=== PATIENT | male | born 1975 | race Caucasian/White ===

== ENCOUNTER 2018-12-21 22:12 | Emergency (ER) | payer OTHER ==
[~2018-12-21] VITALS: Ht 185.4 cm; Wt 144.2 kg
[~2018-12-21 22:12] MED LIST: KEFLEX500 MG PO; LIDEX0.05% T; MOTRIN800 MG PO; PREDNICOT20 MG PO
[2018-12-21 23:21] LABS: BASO % 0.1 % (0.0-1.0); EOS # 0.2 10*3/uL (0.0-0.4); EOS % 1.6 % (1.0-4.0); HEMATOCRIT 42.3 % (42.0-52.0); LYMPH # 1.9 10*3/uL (1.3-4.4); LYMPH % 20.9 % (27.0-41.0); MEAN CELL VOLUME 89.4 fl (80.0-94.0); MEAN CORPUSCULAR HGB 29.6 pg (27.0-31.0); MEAN CORPUSCULAR HGB CONC 33.1 g/dl (33.0-37.0); MEAN PLATELET VOLUME 9.5 fl (9.6-12.3); MONO # 0.7 10*3/uL (0.1-1.0); MONO % 7.3 % (3.0-9.0); NEUT # 6.4 10*3/uL (2.3-7.9); NEUT % 69.9 % (47.0-73.0); PLATELET COUNT AUTOMATED 243 10*3/uL (130-400); RED BLOOD COUNT 4.73 10*6/uL (4.50-5.90); RED CELL DISTRI WIDTH 12.3 % (0-14.5); WHITE BLOOD COUNT 9.1 10*3/uL (4.8-10.8)
[2018-12-21 23:31] LABS: ACT PARTIAL THROMBO TIME 25.5 SECONDS (20.0-32.1)
[2018-12-21 23:37] LABS: ALBUMIN 3.8 gm/dl (3.1-4.5); ALKALINE PHOSPHATASE 118 U/L (45-117); BUN 9 mg/dl (7-24); CHLORIDE 105 mmol/L (98-107); CREATININE 0.96 mg/dL (0.70-1.30); POTASSIUM 3.3 mmol/L (3.5-5.1); SGOT/AST 20 IU/L (3-35); SGPT/ALT 52 U/L (12-78); SODIUM 137 mmol/L (136-145); TOTAL PROTEIN 7.5 gm/dL (6.4-8.2)
[2018-12-21] MEDS ORDERED: CEPHALEXIN500 M1 PO (23:57)
[2018-12-21] MEDS ORDERED: SEPTDS PO (23:57)
== END 2018-12-22 00:19 | disposition home or self-care (01) ==
LOC: ED 22:12
PROVIDERS: Nurse Practitioner Family
DX: S30.860A Insect bite (nonvenomous) of lower back and pelvis, initial encounter (principal); L08.9 Local infection of the skin and subcutaneous tissue, unspecified; Z91.040 Latex allergy status; W57.XXXA Bitten or stung by nonvenomous insect and other nonvenomous arthropods, initial encounter; Y93.89 Activity, other specified; Y92.89 Other specified places as the place of occurrence of the external cause; Y99.8 Other external cause status

== ENCOUNTER 2019-11-04 03:26 | Emergency (ER) | payer SELFPAY ==
[~2019-11-04] VITALS: Ht 185.4 cm; Wt 144.2 kg
[~2019-11-04 03:26] MED LIST changes: +CEPHALEXIN500 M1 PO; +SEPTDS PO
[2019-11-04] MEDS ORDERED: IBU800 MG PO (04:38)
[2019-11-04] MEDS ORDERED: KEFLEX500 M1 PO (04:38)
== END 2019-11-04 05:09 | disposition home or self-care (01) ==
LOC: ED 03:26
DX: S90.31XA Contusion of right foot, initial encounter (principal); X58.XXXA Exposure to other specified factors, initial encounter; Y93.02 Activity, running; Y92.89 Other specified places as the place of occurrence of the external cause; Y99.8 Other external cause status

== ENCOUNTER 2020-11-24 12:31 | Emergency (ER) | payer SELFPAY ==
[~2020-11-24 12:31] MED LIST changes: +IBU800 MG PO; +KEFLEX500 M1 PO
[2020-11-24 13:21] LABS: BASO % 0.1 % (0.0-1.0); EOS # 0.1 10*3/uL (0.0-0.4); EOS % 0.9 % (1.0-4.0); HEMATOCRIT 42.7 % (42.0-52.0); LYMPH # 1.5 10*3/uL (1.3-4.4); LYMPH % 16.2 % (27.0-41.0); MEAN CELL VOLUME 86.4 fl (80.0-94.0); MEAN CORPUSCULAR HGB 28.9 pg (27.0-31.0); MEAN CORPUSCULAR HGB CONC 33.5 g/dl (33.0-37.0); MEAN PLATELET VOLUME 9.3 fl (9.6-12.3); MONO # 0.6 10*3/uL (0.1-1.0); NEUT % 76.5 % (47.0-73.0); PLATELET COUNT AUTOMATED 285 10*3/uL (130-400); RED BLOOD COUNT 4.94 10*6/uL (4.50-5.90); RED CELL DISTRI WIDTH 12.4 % (0-14.5); WHITE BLOOD COUNT 9.1 10*3/uL (4.8-10.8)
[2020-11-24 13:33] LABS: ALBUMIN 4.4 gm/dl (3.1-4.5); ALKALINE PHOSPHATASE 127 U/L (45-117); BUN 12 mg/dl (7-24); CHLORIDE 106 mmol/L (98-107); CREATININE 1.14 mg/dL (0.70-1.30); LIPASE 68 U/L (73-393); POTASSIUM 3.6 mmol/L (3.5-5.1); SGOT/AST 29 IU/L (3-35); SGPT/ALT 53 U/L (12-78); SODIUM 138 mmol/L (136-145); TOTAL PROTEIN 8.4 gm/dL (6.4-8.2)
[2020-11-24 13:35] LABS: ACETAMINOPHEN (TYLENOL) < 5.0 ug/ml (10-30); ETHYL ALCOHOL < 3.0 mg/dl (<3); TROPONIN I < 0.015 ng/ml (<0.045)
[2020-11-24 15:35] LABS: BILIRUBIN Negative (Negative); BLOOD Negative (Negative); CLARITY Turbid (Clear); COLOR Dark Yellow (Yellow); GLUCOSE Negative (Negative); KETONE 1+ (Negative); LEUKO ESTERASE Trace (Negative); NITRITE Negative (Negative); SPECIFIC GRAVITY 1.025 (1.001-1.030)
[2020-11-24 15:41] LABS: PH 8.5 (4.5-8.0)
[2020-11-24 15:42] LABS: BACTERIA TRACE; EPITHELIAL CELLS 0-2; RBC 0-2 rbc/hpf (0-2)
[2020-11-24 15:43] LABS: URINE AMPHETAMINES > 1000 (1000ng/ml); URINE BARBITURATES < 200 (200ng/ml); URINE BENZODIAZEPINES > 200 (200ng/ml); URINE CANNABINOIDS (THC) < 50 (50ng/ml); URINE COCAINE < 300 (300ng/ml); URINE METHADONE < 300 (300ng/ml); URINE OPIATES < 300 (300ng/ml)
[2020-11-24 15:48] LABS: URINE PHENCYCLIDINE < 25 (25ng/ml)
== END 2020-11-24 16:55 | disposition home or self-care (01) ==
LOC: ED 12:31
PROVIDERS: Nurse Practitioner Family
DX: F15.129 Other stimulant abuse with intoxication, unspecified (principal)

== ENCOUNTER 2021-04-05 20:05 | Emergency (ER) | payer OTHER ==
[2021-04-05 21:27] LABS: BILIRUBIN Negative (Negative); BLOOD Negative (Negative); CLARITY Clear (Clear); COLOR Yellow (Yellow); GLUCOSE Negative (Negative); KETONE Negative (Negative); LEUKO ESTERASE Negative (Negative); NITRITE Negative (Negative); PH 6.5 (4.5-8.0); SPECIFIC GRAVITY 1.025 (1.001-1.030)
[2021-04-05 21:33] LABS: URINE AMPHETAMINES > 1000 (1000ng/ml); URINE BARBITURATES < 200 (200ng/ml); URINE BENZODIAZEPINES < 200 (200ng/ml); URINE CANNABINOIDS (THC) > 50 (50ng/ml); URINE COCAINE < 300 (300ng/ml); URINE METHADONE < 300 (300ng/ml); URINE OPIATES < 300 (300ng/ml)
[2021-04-05 21:34] LABS: URINE PHENCYCLIDINE < 25 (25ng/ml)
[2021-04-05 21:40] LABS: BACTERIA 1+
[2021-04-05 22:28] LABS: BASO % 0.2 % (0.0-1.0); EOS # 0.1 10*3/uL (0.0-0.4); EOS % 0.8 % (1.0-4.0); HEMATOCRIT 40.1 % (42.0-52.0); LYMPH # 1.5 10*3/uL (1.3-4.4); LYMPH % 16.2 % (27.0-41.0); MEAN CELL VOLUME 86.2 fl (80.0-94.0); MEAN CORPUSCULAR HGB 30.3 pg (27.0-31.0); MEAN CORPUSCULAR HGB CONC 35.2 g/dl (33.0-37.0); MEAN PLATELET VOLUME 9.1 fl (9.6-12.3); MONO # 0.5 10*3/uL (0.1-1.0); MONO % 5.1 % (3.0-9.0); NEUT % 77.4 % (47.0-73.0); PLATELET COUNT AUTOMATED 293 10*3/uL (130-400); RED BLOOD COUNT 4.65 10*6/uL (4.50-5.90)
[2021-04-05 22:41] LABS: ALBUMIN 3.8 gm/dl (3.1-4.5); ALKALINE PHOSPHATASE 112 U/L (45-117); BUN 11 mg/dl (7-24); CHLORIDE 107 mmol/L (98-107); CPK 335 U/L (39-308); POTASSIUM 3.9 mmol/L (3.5-5.1); SGOT/AST 24 IU/L (3-35); SODIUM 136 mmol/L (136-145); TOTAL PROTEIN 7.7 gm/dL (6.4-8.2)
[2021-04-05 22:45] LABS: ACETAMINOPHEN (TYLENOL) < 5.0 ug/ml (10-30)
[2021-04-05 22:47] LABS: SGPT/ALT 40 U/L (12-78)
[2021-04-05 22:48] LABS: ETHYL ALCOHOL < 3.0 mg/dl (<3)
== END 2021-04-06 10:37 | disposition home or self-care (01) ==
LOC: ED 20:05
PROVIDERS: Physician Assistant
DX: F43.21 Adjustment disorder with depressed mood (principal); Z20.822 Contact with and (suspected) exposure to COVID-19; F15.10 Other stimulant abuse, uncomplicated; R45.851 Suicidal ideations

== ENCOUNTER 2022-06-01 03:17 | Emergency (ER) | payer OTHER ==
[2022-06-01] MEDS ORDERED: AUGMENTIN XR 11 EACH PO (04:22)
[2022-06-01 04:35] LABS: BASO % 0.4 % (0.0-1.0); EOS # 0.1 10*3/uL (0.0-0.4); EOS % 1.4 % (1.0-4.0); HEMATOCRIT 42.2 % (42.0-52.0); LYMPH # 2.7 10*3/uL (1.3-4.4); LYMPH % 27.9 % (27.0-41.0); MEAN CELL VOLUME 90.8 fl (80.0-94.0); MEAN CORPUSCULAR HGB 31.2 pg (27.0-31.0); MEAN CORPUSCULAR HGB CONC 34.4 g/dl (33.0-37.0); MONO # 0.7 10*3/uL (0.1-1.0); MONO % 6.9 % (3.0-9.0); PLATELET COUNT AUTOMATED 258 10*3/uL (130-400); RED BLOOD COUNT 4.65 10*6/uL (4.50-5.90); RED CELL DISTRI WIDTH 11.9 % (0-14.5); WHITE BLOOD COUNT 9.6 10*3/uL (4.8-10.8)
[2022-06-01 04:50] LABS: ALKALINE PHOSPHATASE 129 U/L (46-116); BUN 9 mg/dl (9-23); CHLORIDE 105 mmol/L (98-107); POTASSIUM 3.6 mmol/L (3.4-5.1); SGPT/ALT 70 U/L (10-49); TOTAL PROTEIN 7.6 gm/dL (6.0-8.0)
== END 2022-06-01 06:15 | disposition home or self-care (01) ==
LOC: ED 03:17
PROVIDERS: Emergency Medicine
DX: S01.112A Laceration without foreign body of left eyelid and periocular area, initial encounter (principal); Y08.89XA Assault by other specified means, initial encounter; Y93.89 Activity, other specified; Y92.89 Other specified places as the place of occurrence of the external cause; Y99.8 Other external cause status

== ENCOUNTER → 2022-06-04 | Outpatient (CLI) | payer OTHER ==
[~2022-06-04] MED LIST changes: +AUGMENTIN XR 11 EACH PO
== END | disposition home or self-care (01) ==
LOC: WOUNDCARE 00:54
PROVIDERS: ATTEND Nurse Practitioner Family
DX: T81.33XA Disruption of traumatic injury wound repair, initial encounter (principal); S01.112A Laceration without foreign body of left eyelid and periocular area, initial encounter; F17.200 Nicotine dependence, unspecified, uncomplicated; Z86.73 Personal history of transient ischemic attack (TIA), and cerebral infarction without residual deficits; X58.XXXA Exposure to other specified factors, initial encounter; Y93.89 Activity, other specified; Y92.89 Other specified places as the place of occurrence of the external cause; Y99.8 Other external cause status; Y92.238 Other place in hospital as the place of occurrence of the external cause; Y83.8 Other surgical procedures as the cause of abnormal reaction of the patient, or of later complication, without mention of misadventure at the time of the procedure

== ENCOUNTER 2022-10-06 07:18 | Inpatient (IN) | payer OTHER ==
[~2022-10-06] VITALS: Ht 185.4 cm; Wt 149.7 kg
[~2022-10-06 07:18] MED LIST changes: +BUPRENORPHINE-1 EAC2 SL; +CARAFATE1 G1 PO; +CIPRO500 MG PO; +DELZICOL400 M2 PO; +DULCOLAX STOOL100 M1 PO; +HYDROCODONE-AC1 EAC1 PO; +LATU40TA PO; +LIPITOR40 MG PO; +MEDI-FIRST ASP325 MG PO; +METRONIDAZOLE500 M1 PO; +PROTONIX40 MG PO
[2022-10-06 07:42] VITALS: BP 125/105
[2022-10-06] MEDS ORDERED: OLANZAPINE10 MG PO (07:51)
[2022-10-06 08:21] LABS: BASO % 0.3 % (0.0-1.0); EOS # 0.3 10*3/uL (0.0-0.4); HEMATOCRIT 38.4 % (42.0-52.0); LYMPH # 2.3 10*3/uL (1.3-4.4); LYMPH % 29.5 % (27.0-41.0); MEAN CELL VOLUME 89.9 fl (80.0-94.0); MEAN CORPUSCULAR HGB 30.4 pg (27.0-31.0); MEAN CORPUSCULAR HGB CONC 33.9 g/dl (33.0-37.0); MEAN PLATELET VOLUME 9.4 fl (9.6-12.3); MONO # 0.5 10*3/uL (0.1-1.0); MONO % 5.7 % (3.0-9.0); NEUT # 4.7 10*3/uL (2.3-7.9); PLATELET COUNT AUTOMATED 367 10*3/uL (130-400); RED BLOOD COUNT 4.27 10*6/uL (4.50-5.90); RED CELL DISTRI WIDTH 12.1 % (0-14.5); WHITE BLOOD COUNT 7.8 10*3/uL (4.8-10.8)
[2022-10-06 08:46] LABS: ALKALINE PHOSPHATASE 109 U/L (46-116); BUN 11 mg/dl (9-23); CHLORIDE 106 mmol/L (98-107); LIPASE 37 U/L (12-53); POTASSIUM 3.4 mmol/L (3.4-5.1); SGPT/ALT 27 U/L (10-49); TOTAL PROTEIN 7.4 gm/dL (6.0-8.0)
[2022-10-06 12:30] VITALS: BP 104/59
[2022-10-06 16:00] VITALS: BP 116/59
[2022-10-06 20:00] VITALS: BP 121/54
[2022-10-07] VITALS: BP 101/47
[2022-10-07 07:20] LABS: BASO % 0.6 % (0.0-1.0); EOS # 0.4 10*3/uL (0.0-0.4); EOS % 5.1 % (1.0-4.0); HEMATOCRIT 37.2 % (42.0-52.0); LYMPH # 1.9 10*3/uL (1.3-4.4); LYMPH % 26.1 % (27.0-41.0); MEAN CELL VOLUME 90.7 fl (80.0-94.0); MEAN CORPUSCULAR HGB 30.7 pg (27.0-31.0); MEAN CORPUSCULAR HGB CONC 33.9 g/dl (33.0-37.0); MEAN PLATELET VOLUME 9.5 fl (9.6-12.3); MONO # 0.6 10*3/uL (0.1-1.0); MONO % 7.6 % (3.0-9.0); NEUT # 4.3 10*3/uL (2.3-7.9); NEUT % 60.3 % (47.0-73.0); PLATELET COUNT AUTOMATED 345 10*3/uL (130-400); WHITE BLOOD COUNT 7.2 10*3/uL (4.8-10.8)
[2022-10-07 07:44] LABS: BUN 7 mg/dl (9-23); CHLORIDE 107 mmol/L (98-107); POTASSIUM 3.7 mmol/L (3.4-5.1)
[2022-10-07 08:00] VITALS: BP 131/74
[2022-10-07 12:00] VITALS: BP 149/54
[2022-10-07 16:00] VITALS: BP 117/58
[2022-10-07 20:00] VITALS: BP 116/56
[2022-10-08] VITALS: BP 140/64
[2022-10-08 08:00] VITALS: BP 134/87
[2022-10-08] MEDS ORDERED: AMOX-CLAV 875-1 EACH PO (11:15)
[2022-10-08 12:00] VITALS: BP 127/71
== END 2022-10-08 12:50 | disposition home or self-care (01) | DRG 247 ==
LOC: ED 07:18 → 5E 11:20 → EDHOLD 11:20 → 5E 13:59
PROVIDERS: Emergency Medicine; Registered Nurse; ADMIT Internal Medicine; ATTEND Internal Medicine
DX: K56.690 Other partial intestinal obstruction (principal); L03.311 Cellulitis of abdominal wall; F32.A Depression, unspecified; I10 Essential (primary) hypertension; R73.9 Hyperglycemia, unspecified; F17.210 Nicotine dependence, cigarettes, uncomplicated; E78.5 Hyperlipidemia, unspecified; Z79.82 Long term (current) use of aspirin; Z79.1 Long term (current) use of non-steroidal anti-inflammatories (NSAID); Z79.899 Other long term (current) drug therapy; Z71.6 Tobacco abuse counseling

== ENCOUNTER → 2022-10-13 | Outpatient (CLI) | payer OTHER ==
[~2022-10-13] MED LIST changes: +AMOX-CLAV 875-1 EACH PO; +OLANZAPINE10 MG PO
== END ==
LOC: WOUNDCARE 08:24
PROVIDERS: ATTEND Nurse Practitioner Family
DX: T81.31XA Disruption of external operation (surgical) wound, not elsewhere classified, initial encounter (principal); I10 Essential (primary) hypertension; E78.5 Hyperlipidemia, unspecified; K56.609 Unspecified intestinal obstruction, unspecified as to partial versus complete obstruction; F17.200 Nicotine dependence, unspecified, uncomplicated; Z86.73 Personal history of transient ischemic attack (TIA), and cerebral infarction without residual deficits; Z79.82 Long term (current) use of aspirin; Y92.238 Other place in hospital as the place of occurrence of the external cause; Y83.8 Other surgical procedures as the cause of abnormal reaction of the patient, or of later complication, without mention of misadventure at the time of the procedure

== ENCOUNTER 2024-12-20 19:27 | Emergency (ER) | payer OTHER ==
[~2024-12-20] VITALS: Ht 185.4 cm; Wt 149.7 kg
[~2024-12-20 19:27] MED LIST changes: +ADDERALL 20 MG20 MG PO; +LEVOFLOXACIN750 M2 PO; +NICODERM CQ1 EAC1 TD; +VITAMIN D350 MCG PO; +ZITHROMAX250 MG PO
[2024-12-20] MEDS ORDERED: CEPHALEXIN500 M1 PO (20:15)
[2024-12-20] MEDS ORDERED: Bacitracin Zinc 14 GM TUBE T ONE (20:15)
[2024-12-20] MEDS ORDERED: CEPHALEXIN 500 MG CAP PO ONE (20:20)
== END 2024-12-20 20:35 | disposition home or self-care (01) ==
LOC: ED 19:27
DX: L30.4 Erythema intertrigo (principal); Z79.2 Long term (current) use of antibiotics; Z79.899 Other long term (current) drug therapy; Z87.891 Personal history of nicotine dependence